=== PATIENT | female | born 1980 | race Caucasian/White ===

== ENCOUNTER 2016-05-11 19:21 | Emergency (ER) | payer BC ==
[~2016-05-11] VITALS: Ht 167.6 cm; Wt 54.5 kg
[~2016-05-11 19:21] MED LIST: COLACE100 MG PO
[2016-05-11 19:26] VITALS: TEMP 9888.6
[2016-05-11 21:50] VITALS: BP 138/91; PULSE 96
[2016-05-11] MEDS ORDERED: PERCOCET 325 MG1 TA2 PO (21:50)
== END 2016-05-11 22:06 | disposition home or self-care (01) ==
LOC: COL.ER 19:21
DX: S52.591A Other fractures of lower end of right radius, initial encounter for closed fracture (principal); S52.611A Displaced fracture of right ulna styloid process, initial encounter for closed fracture; V00.211A Fall from ice-skates, initial encounter; Y93.21 Activity, ice skating; Y92.330 Ice skating rink (indoor) (outdoor) as the place of occurrence of the external cause
CPT/HCPCS: J2405; J2704; J3010; J7030

== ENCOUNTER 2016-05-15 14:23 | Day surgery (SDC) | payer BC ==
[~2016-05-15] VITALS: Ht 165.1 cm; Wt 58.3 kg
[~2016-05-15 14:23] MED LIST changes: +PERCOCET 325 MG1 TA2 PO
[2016-05-15 14:59] VITALS: BP 121/59; PULSE 73; TEMP 98.4
[2016-05-15] MEDS ORDERED: ADVIL200 MG PO (15:09)
[2016-05-15 18:00] VITALS: BP 112/68; PULSE 76
[2016-05-15 18:15] VITALS: BP 115/76; PULSE 78
[2016-05-15 18:30] VITALS: BP 123/77; PULSE 73
[2016-05-15 18:45] VITALS: BP 117/68; PULSE 75
[2016-05-15 19:37] VITALS: BP 119/62; PULSE 71; TEMP 98.7
== END 2016-05-15 19:54 | disposition home or self-care (01) ==
LOC: SDCO 14:23 → SURG 18:00 → SDCO 19:54
DX: S52.571A Other intraarticular fracture of lower end of right radius, initial encounter for closed fracture (principal); W00.0XXA Fall on same level due to ice and snow, initial encounter; Y93.21 Activity, ice skating
CPT/HCPCS: OP; C1713; J0690; J2250; J2704; J2795; J3010; J7120

== ENCOUNTER → 2017-01-01 | Outpatient (CLI) | payer BC ==
[~2017-01-01] MED LIST changes: +ADVIL200 MG PO
== END ==
LOC: MC.RAD 11:00
DX: Z12.31 Encounter for screening mammogram for malignant neoplasm of breast (principal)

== ENCOUNTER → 2018-01-09 | Outpatient (CLI) | payer BC | LOC: MC.RAD 08:15 | DX: D24.1 Benign neoplasm of right breast (principal); D24.2 Benign neoplasm of left breast ==

== ENCOUNTER → 2019-01-22 | Outpatient (CLI) | payer BC | LOC: MC.RAD 09:33 | DX: Z12.31 Encounter for screening mammogram for malignant neoplasm of breast (principal) ==

== ENCOUNTER → 2020-03-09 | Outpatient (CLI) | payer BC | LOC: MC.RAD 08:45 | DX: Z12.31 Encounter for screening mammogram for malignant neoplasm of breast (principal) ==

== ENCOUNTER → 2021-01-13 | Outpatient (CLI) | payer BC | LOC: MC.RAD 11:25 | DX: Z12.31 Encounter for screening mammogram for malignant neoplasm of breast (principal) ==

== ENCOUNTER → 2022-02-01 | Outpatient (CLI) | payer BC | LOC: MC.RAD 07:14 | DX: Z12.31 Encounter for screening mammogram for malignant neoplasm of breast (principal) ==

== ENCOUNTER → 2023-01-22 | Outpatient (CLI) | payer BC | LOC: CANSCHCLI → MC.RAD 16:32 | DX: Z12.31 Encounter for screening mammogram for malignant neoplasm of breast (principal) ==

== ENCOUNTER → 2024-01-24 | Outpatient (CLI) | payer BC | LOC: MC.RAD 07:00 | DX: Z12.31 Encounter for screening mammogram for malignant neoplasm of breast (principal) ==